=== PATIENT | female | born 1945 | race Caucasian/White ===

== ENCOUNTER 2016-07-24 10:36 | Emergency (ER) | payer MEDICARE, BC ==
[2016-07-24 11:26] LABS: APPEARANCE CLEAR (CLEAR); BILIRUBIN NEGATIVE (NEGATIVE); COLOR YELLOW (YELLOW); GLUCOSE NEGATIVE (NEGATIVE); KETONE NEGATIVE (NEGATIVE); LEUKOCYTE ESTERASE NEGATIVE (NEGATIVE); NITRITE NEGATIVE (NEGATIVE); PROTEIN NEGATIVE (NEGATIVE); UROBILINOGEN NORMAL (NORMAL)
[2016-07-24 11:30] LABS: BASOPHILS 0.3 % (0.0-2.0); EOSINOPHILS 0.7 % (0-7); HEMATOCRIT 30.2 % (36.0-48.0); MCH 25.9 pg (26.0-34.0); MCHC 29.8 g/dL (31.0-37.0); MEAN PLATELET VOLUME 10.5 fL (7.4-10.4); PLATELET COUNT 141 10x3/uL (130-400); RBC 3.47 10x6/uL (4.00-5.40); RDW 20.1 % (11.5-14.5); WBC 3.1 10x3/uL (4.8-10.8)
[2016-07-24 11:55] LABS: ALBUMIN 2.5 g/dL (3.4-5.0); ANION GAP 8.2 mmol/L (8-16); BILIRUBIN - TOTAL 0.62 mg/dL (0.2-1.3); CALCIUM 8.4 mg/dL (8.5-10.1); CARBON DIOXIDE 31.2 mmol/L (21.0-32.0); CREATININE - SERUM 1.1 mg/dL (0.6-1.3); POTASSIUM - SERUM 4.4 mmol/L (3.5-5.1); PROTEIN - SERUM 5.5 g/dL (6.4-8.2)
[2016-07-24 13:45] LABS: CREATINE KINASE 26 UL (21-215); MAGNESIUM - SERUM 1.7 mg/dL (1.8-2.4)
[2016-07-24 13:49] LABS: TROPONIN-I < 0.017 ng/mL (0.000-0.060)
== END 2016-07-24 15:10 | disposition home or self-care (01) ==
LOC: D.ER 10:36
PROVIDERS: Emergency Medicine
DX: R55 Syncope and collapse (principal); D64.9 Anemia, unspecified; E86.0 Dehydration; C56.9 Malignant neoplasm of unspecified ovary